=== PATIENT | female | born 1940 | race Caucasian/White ===

== ENCOUNTER 2016-10-19 16:08 | Emergency (ER) | payer MEDICARE, BC ==
[2016-10-19 16:42] VITALS: BP 163/89
--- NOTE | 2016-10-19 16:57 | EDM.PDOC ---
ED HPI GENERAL MEDICAL PROBLEM - General Stated Complaint: BRONCHITIS Time Seen by Provider: 10/19/16 16:50 Source of Information: Reports: Patient History Limitations: Reports: No limitations - History of Present Illness INITIAL COMMENTS - FREE TEXT/NARRATIVE: History of present illness: [76-year-old female presenting with a cough she was been treated with doxycycline and an inhaler but it is not improving so she comes in frustrated that she started getting better. No fevers or shortness of breath she is not a smoker the cough is relatively nonproductive she was diagnosed with bronchitis and put on doxycycline.] Review of systems: As per history of present illness and below otherwise all systems reviewed and negative. Past medical history: As per history of present illness and as reviewed below otherwise noncontributory. Surgical history: As per history of present illness and as reviewed below otherwise noncontributory. Social history: No reported history of drug or alcohol abuse. Family history: As per history of present illness and as reviewed below otherwise noncontributory. Physical exam: HEENT: Atraumatic, normocephalic, pupils reactive, negative for conjunctival pallor or scleral icterus, mucous membranes moist, throat clear, neck supple, nontender, trachea midline. Lungs: Clear to auscultation, breath sounds equal bilaterally, chest nontender. Heart: S1S2, regular, negative for clicks, rubs, or JVD. Abdomen: Soft, nondistended, nontender. Negative for masses or hepatosplenomegaly. Negative for costovertebral tenderness. Pelvis: Stable nontender. Genitourinary: Deferred. Rectal: Deferred. Extremities: Atraumatic, negative for cords or calf pain. Neurovascular unremarkable. Neuro: Awake, alert, oriented. Cranial nerves II through XII unremarkable. Cerebellum unremarkable. Motor and sensory unremarkable throughout. Exam nonfocal. Diagnostics: [] Therapeutics: [] Impression: [Bronchitis] Plan: [We will switch her to a Z-Guido and provide her with Robitussin with codeine 5- 10 mL by mouth every 4 hours when necessary cough 240 mL no refills. Followup with primary improving] Definitive disposition and diagnosis as appropriate pending reevaluation and review of above. - Related Data Allergies Allergy/AdvReac Type Severity Reaction Status Date / Time Sulfa (Sulfonamide Allergy Rash Verified 10/19/16 16:53 Antibiotics) Home Meds: Home Meds Metoprolol Succinate 50 mg PO DAILY 09/17/15 [History] Pyridoxine HCl [Vitamin B-6] 25 mg PO DAILY 09/17/15 [History] Sertraline [Zoloft] 25 mg PO BEDTIME 09/17/15 [History] Sertraline [Zoloft] 50 mg PO DAILY 09/17/15 [History] Past Medical History HEENT History: Reports: Impaired vision Cardiovascular History: Reports: Hypertension Gastrointestinal History: Reports: Hiatal hernia WEARING [employer] History: Reports: - Past Surgical History GI Surgical History: Reports: Hernia repair/other, [place] fundoplication Musculoskeletal Surgical History: Reports: Knee replacement Social & Family History - Recreational Drug Use Recreational Drug Use: No ED ROS GENERAL - Review of Systems Review Of Systems: ROS reveals no pertinent complaints other than HPI. ED EXAM, GENERAL - Physical Exam Exam: See Below Course - Vital Signs Last Recorded V/S: Last Vital Signs Temp 36.9 C 10/19/16 16:41 Pulse 82 10/19/16 16:41 Resp 20 10/19/16 16:41 BP 163/89 H 10/19/16 16:41 Pulse Ox 96 10/19/16 16:41 Departure - Departure Time of Disposition: 16:55 Disposition: Home, Self-Care 01 Condition: good Clinical Impression: Bronchitis Additional Instructions: I hope you get to feeling better and this works for you and if it doesn't then see your primary care doctor again and hopefully we can come up with something that will take care of this for you.
== END 2016-10-19 17:07 | disposition home or self-care (01) ==
LOC: JP.ED 16:08
DX: J40 Bronchitis, not specified as acute or chronic (principal); I10 Essential (primary) hypertension; Z79.899 Other long term (current) drug therapy; Z88.2 Allergy status to sulfonamides; Z96.659 Presence of unspecified artificial knee joint; Z98.890 Other specified postprocedural states
CPT/HCPCS: 99283